=== PATIENT | female | born 1985 | race Caucasian/White ===

== ENCOUNTER 2017-10-23 17:29 | Emergency (ER) | payer SELFPAY ==
[2017-10-23 17:37] VITALS: BMI 25.7
[2017-10-23 17:40] VITALS: RESP 20; TEMP 98.1; O2SAT 100
[2017-10-23 18:24] LABS: BASO % 0.4 % (0.0-2.0); EOS % 0.5 % (0.0-4.0); HEMOGLOBIN 12.4 g/dL (11.0-16.0); LYMPH % 29.3 % (20.0-40.0); MEAN CELL VOLUME 77.6 fL (81.0-99.0); MEAN CORPUSCULAR HEMOGLOBIN 26.6 pg (27.0-31.0); MEAN CORPUSCULAR HGB CONC 34.2 g/dL (33.0-37.0); MEAN PLATELET VOLUME 8.3 fL (7.2-11.7); MONO # 0.7 K/uL (0.0-0.8); MONO % 6.8 % (0.0-10.0); NEUT # 6.6 K/uL (1.8-7.0); NRBC % 0.1 % (0.0-2.0); RBC 4.68 Mil/uL (3.80-5.20); RED CELL DISTRIBUTION WIDTH 12.8 % (11.5-14.5); WHITE BLOOD COUNT 10.4 K/uL (4.8-10.8)
[2017-10-23 18:28] LABS: HCG,QUALITATIVE URINE POSITIVE (NEGATIVE)
[2017-10-23 18:29] LABS: URINE BACTERIA RARE (<OCC); URINE BILIRUBIN NEGATIVE (NEGATIVE); URINE CLARITY Clear (Clear); URINE COLOR Straw (YELLOW); URINE GLUCOSE (UA) NORMAL (Normal); URINE LEUKOCYTE ESTERASE NEG Leu/uL (Negative); URINE NITRATE NEGATIVE (NEGATIVE); URINE PROTEIN NEGATIVE (NEGATIVE); URINE UROBILINOGEN NORMAL mg/dL (0.2-1.0)
[2017-10-23 18:31] LABS: URINE BLOOD 1+ (NEGATIVE)
[2017-10-23 19:08] LABS: ALB/GLOB RATIO 1.2 (1.0-2.1); ALBUMIN 4.3 g/dL (3.5-5.0); ALT/SGPT 28 U/L (9-52); AST/SGOT 25 U/L (14-36); BLOOD UREA NITROGEN 8 mg/dL (7-17); CALCIUM 9.8 mg/dl (8.6-10.4); GFR AFRICAN-AMERICAN > 60; GFR NON-AFRICAN AMERICAN > 60
--- NOTE | 2017-10-23 19:48 | C.PDOC ---
History Of Present Illness 32 y/o female currently 9 weeks , presents to ED for complaints of vaginal bleeding and pelvic cramping. Denies any other physical complaints. Time Seen by Provider: 10/23/17 17:40 Chief Complaint (Nursing): Female Genitourinary History Per: Patient History/Exam Limitations: no limitations Onset/Duration Of Symptoms: Hrs Current Symptoms Are (Timing): Still Present Recent travel outside of the [place]: No Past Medical History Reviewed: Historical Data, Nursing Documentation, Vital Signs Vital Signs: Last Vital Signs Temp 98.1 F 10/23/17 20:54 Pulse 82 10/23/17 20:54 Resp 20 10/23/17 20:54 BP 128/83 10/23/17 20:54 Pulse Ox 100 10/23/17 20:54 - Medical History PMH: No Chronic Diseases Surgical History: No Surg Hx Family History: States: No Known Family Hx - Social History Hx Alcohol Use: No Hx Substance Use: No - Immunization History Hx Tetanus Toxoid Vaccination: No Hx Influenza Vaccination: No Hx Pneumococcal Vaccination: No Review Of Systems Constitutional: Negative for: Fever, Chills Respiratory: Negative for: Shortness of Breath Genitourinary: Positive for: Vaginal Bleeding, Other (Pelvic cramping) Neurological: Negative for: Weakness, Numbness Physical Exam - Physical Exam Appears: Well, Non-toxic, No Acute Distress Skin: Normal Color, Warm, Dry Head: Atraumatic, Normacephalic Eye(s): bilateral: Normal Inspection Oral Mucosa: Moist Neck: Supple Chest: Symmetrical, No Tenderness Cardiovascular: Rhythm Regular Respiratory: Normal Breath Sounds, No Decreased Breath Sounds, No Rales, No Rhonchi, No Wheezing Gastrointestinal/Abdominal: Soft, No Tenderness, No Distention, No Guarding, No Rebound Neurological/Psych: Oriented x3, Normal Speech, Normal Cognition ED Course And Treatment - Laboratory Results Result Diagrams: 10/23/17 18:20 10/23/17 18:20 Lab Interpretation: Normal (Quant 128,380 H, Type B+) Urine POC: Positive O2 Sat by Pulse Oximetry: 100 (RA) Pulse Ox Interpretation: Normal - CT Scan/US US Transvaginal Other Rad Studies (CT/US): Read By Radiologist, Radiology Report Reviewed CT/US Interpretation: IMPRESSION: 1. Single live intrauterine with an estimated menstrual age of 9 weeks and 3 days plus or -. 0 weeks and 5 days. Expected date of confinement 05/25/2018. 2. Subchorionic fluid collection. 3. Posterior corpus fibroid US Transabdominal Other Rad Studies (CT/US): Read By Radiologist, Radiology Report Reviewed CT/US Interpretation: IMPRESSION: 1. Poor distention of the bladder. The ovaries are not seen as separate structures. 2. Intrauterine . pole seen to better advantage on transvaginal examination done at. the same time. Reevaluation Time: 20:58 Reassessment Condition: Improved (bleeding was minor, now resolving spontaneously.) Medical Decision Making Medical Decision Making: Ordered BBK, blood work, urinalysis, and Transvaginal and Transabdominal US. 2100: threatened AB, viable IUP, no rho Margaret for B+ blood. Disposition Doctor Will See Patient In The: Office Counseled Patient/Family Regarding: Studies Performed, Diagnosis - Disposition Disposition: HOME/ ROUTINE Disposition Time: 20:58 Condition: GOOD Forms: [facility] (Welsh) - Clinical Impression Clinical Impression: Threatened - Scribe Statement The provider has reviewed the documentation as recorded by the Scribmarisol Hall All medical record entries made by the Christianibmarisol were at my direction and personally dictated by me. I have reviewed the chart and agree that the record accurately reflects my personal performance of the history, physical exam, medical decision making, and the department course for this patient. I have also personally directed, reviewed, and agree with the discharge instructions and disposition.
--- NOTE | 2017-10-23 20:31 | US ---
EXAM: US , Transvaginal CLINICAL HISTORY: 32 years old, female; Signs and symptoms; Lmp or gestational age (in weeks): 12-24-17; Other: Vag bleed; ; Additional info: Vag bleed @ 9 wks TECHNIQUE: Real-time transvaginal obstetrical ultrasound of the maternal pelvis and a first trimester with image documentation. Transvaginal imaging was used for better evaluation of the fetus and adnexa. COMPARISON: No relevant prior studies available. FINDINGS: Gestation: There is an intrauterine . There is a gestational sac. There is a Pole with a crown rump length measurement of 2.7 cm for a menstrual age of 9 weeks and 4 days. Cardiac activity is noted a rate of 176 beats per minute. The gestational sac measures 3.5 x 3.3 x 5.3 cm for a sac diameter 4.02 cm for a menstrual age of 9 weeks and 2 days. Placenta/amniotic fluid: The amnion is visible. There is a subchorionic fluid collection measuring 2.3 x 1.7 x 3 cm.. The subchorionic fluid collection is located along the inferior aspect of the gestational sac. Uterus/cervix: The cervix measures 3.4 cm in length. The cervix is closed at the time of exam. A trace amount of fluid is noted the external cervical os. There is a posterior corpus fibroid subcapsular /intramural in location measuring 3.5 x 3.1 x 3.6 cm. Ovaries: The right ovary measures 2.2 x 1.4 x 1.7 cm. Blood flow seen in the right ovary on pulsed Doppler examination. The left ovary measures 2.5 x 1.3 by 2.1 cm. Subcentimeter follicles present. Blood flow is seen in the left ovary on color Doppler examination. Free fluid: No free fluid. IMPRESSION: 1. Single live intrauterine with an estimated menstrual age of 9 weeks and 3 days plus or -0 weeks and 5 days. Expected date of confinement 05/25/2018. 2. Subchorionic fluid collection. 3. Posterior corpus fibroid EXAM: US Pelvis Complete, Transabdominal US Pelvis, Transvaginal US Duplex Arterial/Venous of the Pelvis, Complete EXAM DATE/TIME: Exam ordered 10/23/2017 5:44 PM CLINICAL HISTORY: 32 years old, female; Signs and symptoms; Lmp or gestational age (in weeks): 12-24-17; Other: Vag bleed; ; Additional info: Vag bleed @ 9 wks TECHNIQUE: Real-time transabdominal and transvaginal pelvic ultrasound (complete) with image documentation. Transvaginal imaging was used for better evaluation of the endometrium and adnexa. Real-time duplex ultrasound scan of the arterial and venous flow of the pelvis with color Doppler flow and spectral waveform analysis. COMPARISON: No relevant prior studies available. FINDINGS: Uterus/cervix: The uterus measures 10.98 x 7.395 7.8 cm. There is an intrauterine gestational sac measuring 4.5 x 1.8 x 3.2 cm.. There is a pole present which is not well-seen due to poor bladder distention. Ovaries: The ovaries are not seen as separate structures transabdominally. Free fluid: No free fluid. Bladder: The bladder is poorly distended. Other findings: IMPRESSION: 1. Poor distention of the bladder. The ovaries are not seen as separate structures. 2. Intrauterine . pole seen to better advantage on transvaginal examination done at the same time.
[2017-10-23 20:55] VITALS: BP 128/83; PULSE 82
== END 2017-10-23 21:18 | disposition home or self-care (01) ==
LOC: C.ER 17:29
DX: O20.0 Threatened abortion (principal); Z3A.09 9 weeks gestation of pregnancy